=== PATIENT | female | born 1940 | race Native Hawaiian/Other Pacific Islander ===

== ENCOUNTER 2020-08-21 11:09 | Outpatient (CLI) | payer OTHER | END 2020-08-21 21:10 | disposition home or self-care (01) | LOC: INF 11:09 | PROVIDERS: ATTEND Internal Medicine | DX: Z23 Encounter for immunization (principal) | CPT/HCPCS: 96372 ==

== ENCOUNTER 2020-09-17 13:05 | Outpatient (CLI) | payer OTHER | END 2020-09-17 21:19 | disposition home or self-care (01) | LOC: INF 13:05 | PROVIDERS: ATTEND Internal Medicine | DX: Z23 Encounter for immunization (principal) | CPT/HCPCS: 96372 ==